=== PATIENT | male | born 1980 | race Caucasian/White ===

== ENCOUNTER 2023-09-06 13:46 | Emergency (ER) | payer OTHER ==
[2023-09-06 14:03] VITALS: BP 132/77; O2SAT 97
--- NOTE | 2023-09-06 14:23 | ED Physician Documentation ---
History of Present Illness - Stated complaint Stated Complaint: - Chief complaint Chief Complaint: General - History obtained from History obtained from: Patient - History of Present Illness Timing: Other (1 month) Pain level max: 3 Pain level now: 3 - Additonal information Additional information: 43-year-old male presents to the emergency department with redness and swelling to the anterior aspect of the scrotum he states that he has been placed on 2 different antifungal creams by his doctor. He states now there is purulent drainage from the scrotum. No fevers. No chills. No crepitus. He states he also has patches of red skin behind both of his knees and on his right upper flank. No changes to medications. No new soaps or detergents. No history of allergies. Nothing makes it better or worse. No difficulty urinating. No change in sexual partners. No STI exposure Review of Systems Constitutional: denies: Fever, Chills Respiratory: denies: Cough GI: denies: Nausea, Vomiting, Diarrhea Skin: denies: Rash Musculoskeletal: denies: Neck pain, Back pain Neurologic: denies: Headache PD PAST MEDICAL HISTORY - Past Medical History Past Medical History: No - Past Surgical History Past Surgical History: No Ortho: Other - Present Medications Home Medications: Ambulatory Orders Medication Instructions Recorded Confirmed Sulfamethox/Trimeth 800/160 1 each PO BID #20 tablet 09/06/23 [Bactrim Ds 800/160] Terbinafine [Lamisil] 250 mg PO DAILY #14 tablet 09/06/23 cephALEXin [Keflex] 500 mg PO Q6H #40 cap 09/06/23 - Allergies Allergies/Adverse Reactions: Allergies Allergy/AdvReac Type Severity Reaction Status Date / Time No Known Drug Allergies Allergy Verified 09/06/23 13:58 - Social History Does the pt smoke?: No Smoking Status: Current some day smoker PD ED PE NORMAL - Vitals Vital signs reviewed: Yes - General General: Alert and oriented X 3, No acute distress - HEENT HEENT: PERRL, Moist mucous membranes - Neck Neck: Supple, no meningeal sign - Cardiac Cardiac: RRR, Strong equal pulses - Respiratory Respiratory: No respiratory distress, Clear bilaterally - Abdomen Abdomen: Soft, Non tender, Non distended - Male Male : Other (No penile discharge. No lymphadenopathy. There is erythema to the anterior aspect of the scrotum, approximately 4 x 6 cm area with some slight purulent drainage. There is no crepitus.) - Back Back: No CVA TTP, No spinal TTP - Derm Derm: Warm and dry - Extremities Extremities: No edema, No calf tenderness / cord - Neuro Neuro: Alert and oriented X 3 - Psych Psych: Normal mood, Normal affect Results - Vitals Vitals: Vital Signs - 24 hr 09/06/23 13:55 Temperature 36.7 C Heart Rate 86 Respiratory 20 Rate Blood Pressure 132/77 H O2 Saturation 97 - Labs Labs: Microbiology 09/06/23 14:18 Wound Culture - Preliminary Skin - Wound PD Medical Decision Making - ED course Complexity details: considered differential, d/w patient ED course: Patient with what appears to be a mild cellulitis of the scrotum. There is some drainage as well. Likely started off as a fungal infection, possible tinea versus [place]is but has been on nystatin without any improvement, therefore we will trial on terbinafine and antibiotics. A wound culture was sent. No evidence of Ninoska's gangrene. No evidence of drainable abscess. No evidence of sepsis. Patient is well-appearing, nontoxic. Afebrile. Patient counseled regarding signs and symptoms for which I believe and urgent re-evaluation would be necessary. Patient with good understanding of and agreement to plan and is comfortable going home at this time This document was made in part using voice recognition software. While efforts are made to proofread this document, sound alike and grammatical errors may occur. Departure - Departure Disposition: 01 Home, Self Care Clinical Impression: Tinea Cellulitis Qualifiers: Site of cellulitis: unspecified site Qualified Code(s): L03.90 - Cellulitis, unspecified Condition: Good Instructions: ED Infec Skin Cellulitis, ED Infec Skin Fungal Tinea Follow-Up: your,doctor in 1 week [Other] Prescriptions: Sulfamethox/Trimeth 800/160 [Bactrim Ds 800/160] 1 each PO BID #20 tablet cephALEXin [Keflex] 500 mg PO Q6H #40 cap Terbinafine [Lamisil] 250 mg PO DAILY #14 tablet Comments: Your prescriptions were sent to [facility] in [place]. Please take all medications as prescribed. Please return if you worsen. It is recommended you follow-up with your primary care provider in 1 week for recheck. A wound culture was also sent, we will call you if an antibiotic change is needed. Forms: PCP List Discharge Date/Time: 09/06/23 14:37
== END 2023-09-06 14:37 | disposition home or self-care (01) ==
LOC: ED 13:46
DX: B35.4 Tinea corporis (principal); L03.90 Cellulitis, unspecified; F17.200 Nicotine dependence, unspecified, uncomplicated
CPT/HCPCS: 87070; 87205; 99283